=== PATIENT | female | born 1950 | race Caucasian/White ===

== ENCOUNTER → 2017-06-07 16:06 | Outpatient (CLI) | payer MEDICARE, OTHER ==
[2012-05-23 08:04] VITALS: BMI 35.0
== END | disposition home or self-care (01) ==
LOC: D.MAMMO 10:15
DX: Z12.31 Encounter for screening mammogram for malignant neoplasm of breast (principal)

== ENCOUNTER → 2018-04-11 09:44 | Outpatient (CLI) | payer MEDICARE, OTHER ==
[2012-05-23 08:04] VITALS: BMI 35.0
== END | disposition home or self-care (01) ==
LOC: D.NM 09:44
DX: M89.9 Disorder of bone, unspecified (principal)

== ENCOUNTER → 2018-07-18 10:11 | Outpatient (CLI) | payer MEDICARE, OTHER ==
[2012-05-23 08:04] VITALS: BMI 35.0
== END | disposition home or self-care (01) ==
LOC: D.MRI 10:11
DX: M25.512 Pain in left shoulder (principal)